=== PATIENT | male | born 1980 | race Two or more races ===

== ENCOUNTER 2024-06-11 05:12 | Emergency (ER) | payer SELFPAY ==
[~2024-06-11] VITALS: Ht 177.8 cm; Wt 77.1 kg
[2024-06-11] MEDS ORDERED: ETOMIDATE (2MG/ML) 20ML VIAL IV ONE (05:20)
[2024-06-11] MEDS ORDERED: ROCURONIUM 10MG/ML 10ML VIAL IV ONE (05:20)
[2024-06-11] MEDS: PROPOFOL 100 ML IV ONE (05:29)
[2024-06-11 05:30] VITALS: PULSE 136; RESP 23; O2SAT 100
[2024-06-11] MEDS: PROPOFOL 100 ML IV SCH ×2 (05:30)
[2024-06-11] MEDS: IOHEXOL 350 MG/ML 100ML IJ ONE (05:42)
[2024-06-11] MEDS: ROCURONIUM 10MG/ML 10ML VIAL IV ONE (05:45)
[2024-06-11] MEDS: ETOMIDATE (2MG/ML) 20ML VIAL IV ONE (05:45)
[2024-06-11 06:28] LABS: Alanine Aminotransferase 29 U/L (7-40); Albumin 4.8 g/dL (3.2-4.8); Alkaline Phosphatase 125 U/L (46-116); Anion Gap 20 (5-15); Aspartate Aminotransferase 35 U/L (13-40); BUN/Creatinine Ratio 13.5 (10.0-20.0); Blood Urea Nitrogen 15 mg/dL (9-23); Carbon Dioxide 14 mmol/L (20-30); Chloride 104 mmol/L (98-107); Glucose 226 mg/dL (74-106); Lipase 41 U/L (12-53); Potassium 3.7 mmol/L (3.5-5.1); Sodium 138 mmol/L (136-145); Total Protein 7.2 g/dL (5.7-8.2)
[2024-06-11 06:29] LABS: Basophils # (auto) 0.1 10 ^3/uL (0-0.2); Basophils % (auto) 0.9 % (0.0-2.0); Bilirubin, Total 0.9 mg/dL (0.2-1.0); Eosinophils # (auto) 0.7 10 ^3/uL (0-0.8); Eosinophils % (auto) 4.9 % (0.0-7.0); Hematocrit 48.4 % (41.0-53.0); Hemoglobin 16.8 g/dL (13.5-17.5); Lymphocytes # (auto) 7.8 10 ^3/uL (0.4-5.4); Lymphocytes % (auto) 51.4 % (10.0-50.0); Mean Corpuscular Hemoglobin 31.8 pg (28.0-32.0); Mean Corpuscular Hgb Conc. 34.6 g/dL (32.0-36.0); Mean Corpuscular Volume 91.9 fL (80.0-100.0); Monocytes # (auto) 1.1 10 ^3/uL (0-1.3); Monocytes % (auto) 7.1 % (0.0-12.0); Neutrophils # (auto) 5.4 10 ^3/uL (1.6-8.6); Neutrophils % (auto) 35.7 % (37.0-80.0); Nucleated Red Blood Cells % 0.1 %; Platelet Count (auto) 323 10^3/uL (140-450); Red Blood Cells 5.27 10^6/uL (4.5-5.90); Red Cell Distribution Width 13.1 % (11.8-14.3); White Blood Cell 15.2 10^3/uL (4.4-10.8)
[2024-06-11 06:36] VITALS: BP 202/138; PULSE 153; RESP 30; TEMP 101.8; O2SAT 100
[2024-06-11 06:44] LABS: Lactic Acid w/Reflex 10.1 mmol/L (0.4-2.0)
[2024-06-11] MEDS ORDERED: CEFEPIME 2GM/50ML NS 50 ML IV ONE (06:45)
== END 2024-06-11 06:55 | disposition short-term general hospital (02) ==
LOC: ER 05:12 → EDBD 05:12 → ER 06:55
DX: I60.9 Nontraumatic subarachnoid hemorrhage, unspecified (principal); R40.4 Transient alteration of awareness; I10 Essential (primary) hypertension
CPT/HCPCS: 31500; 36415; 36556; 36600; 70496; 71045; 71260; 74177; 80053; 80320; 82805; 82962; 83605; 83690; 84484; 85025; 87070; 87077; 87186; 87205; 93005; 99291; J2704; Q9967; 36569; 96365; 96374; 96375